=== PATIENT | male | born 1985 | race Caucasian/White ===

== ENCOUNTER 2018-07-19 18:24 | Inpatient (IN) | payer OTHER ==
--- NOTE | 2018-07-19 20:16 | HP ---
CIWA Score - CIWA Score Nausea/Vomitin-Int. Nausea w/Dry Heave Muscle Tremors: 2 Anxiety: 3 Agitation: 2 Paroxysmal Sweats: 2 Orientation: 0-Oriented Tacttile Disturbances: 0-None Auditory Disturbances: 0-None Visual Disturbances: 2-Mild Sensitivity Headache: 0-None Present CIWA-Ar Total Score: 15 Admission ROS BHS - HPI Chief Complaint: " I have a lot of stress right now, I don't feel well" alcohol withdrawal sx Allergies/Adverse Reactions: Allergies Allergy/AdvReac Type Severity Reaction Status Date / Time No Known Allergies Allergy Verified 07/19/18 20:25 History of Present Illness: 33 yo male with hx of nicotine and alcohol dependence. Last detox three months ago at [facility] left AMA after 24 hours, and relapse. Reports was seen at [facility] three days ago for anxiety d/t to right corneal and reports was given valium and sent home. utox positive for : BAR, BZO, THC. Denies any legal troubles at this time. Denies suicidal / homicidal ideation. Denies hx of seizures or blackouts. PMHX: HDL. Denies any psychiatric diagnosis. Longest period of sobriety seven months. Exam Limitations: No Limitations - Ebola screening Have you traveled outside of the country in the last 21 days: No (N) Have you had contact with anyone from an Ebola affected area: No Do you have a fever: No - Review of Systems Constitutional: Loss of Appetite, Changes in sleep, Other (fatigue) EENT: reports: See HPI Respiratory: reports: Other (SOB in AM , no SOB at this time) Cardiac: reports: No Symptoms Reported GI: reports: Nausea, Poor Appetite, Poor Fluid Intake, Vomiting : reports: No Symptoms Reported Musculoskeletal: reports: Back Pain, Joint Pain Integumentary: reports: No Symptoms Reported Neuro: reports: No Symptoms reported Endocrine: reports: Increased Thirst Hematology: reports: No Symptoms Reported Psychiatric: reports: Orientated x3, Anxious, Depressed Other Systems: Reviewed and Negative Patient History - Patient Medical History Hx Anemia: No Hx Asthma: No Hx Chronic Obstructive Pulmonary Disease (COPD): No Hx Cancer: No Hx Cardiac Disorders: No Hx Congestive Heart Failure: No Hx Hypertension: No Hx Hypercholesterolemia: Yes (no meds ) Hx Pacemaker: No HX Cerebrovascular Accident: No Hx Seizures: No Hx Dementia: No Hx Diabetes: No Hx Gastrointestinal Disorders: No Hx Liver Disease: No Hx Genitourinary Disorders: No Hx Sexually Transmitted Disorders: No Hx Renal Disease (ESRD): No Hx Thyroid Disease: No Hx Human Immunodeficiency Virus (HIV): No ( last tested three weeks [facility] reasults ) Hx Hepatitis C: No Hx Depression: Yes Hx Suicide Attempt: No Hx Bipolar Disorder: No Hx Schizophrenia: No - Patient Surgical History Past Surgical History: No - PPD History Previous Implant?: No Documented Results: Negative w/o proof PPD to be Administered?: Yes - Smoking Cessation Smoking history: Current every day smoker Have you smoked in the past 12 months: Yes Aproximately how many cigarettes per day: 30 Hx Chewing Tobacco Use: No Initiated information on smoking cessation: Yes 'Breaking Loose' booklet given: 07/19/18 - Substance & Tx. History Hx Alcohol Use: Yes Hx Substance Use: Yes Substance Use Type: Alcohol, Marijuana Hx Substance Use Treatment: Yes (Last detox three months ago [facility] left AMA after 24 hours.) - Substances Abused Alcohol Route: Oral Frequency: Daily Amount used: 1 litter of vodka Age of first use: 16 Date of Last Use: 07/19/18 Marijuana/Hashish Route: Smoking Frequency: Daily Amount used: 2 grams Age of first use: 16 Date of Last Use: 07/19/18 Family Disease History - Family Disease History Family History: Denies Admission Physical Exam [facility] - Physical General Appearance: Yes: Disheveled, Moderate Distress, Sweating, Anxious HEENTM: Yes: EOMI, Hearing grossly Normal, Normal ENT Inspection, Normocephalic , Normal Voice, ARNOLDO, Pharynx Normal, Tm's normal, Other (cheilithis) Respiratory: Yes: Chest Non-Tender, Lungs Clear, Normal Breath Sounds, No Respiratory Distress, No Accessory Muscle Use Neck: Yes: Within Normal Limits Breast: Yes: Breast Exam Deferred Cardiology: Yes: Regular Rhythm, Regular Rate Abdominal: Yes: Normal Bowel Sounds, Non Tender, Flat Genitourinary: Yes: Within Normal Limits Back: Yes: Normal Inspection Musculoskeletal: Yes: full range of Motion, Gait Steady, Pelvis Stable Extremities: Yes: Normal Capillary Refill, Normal Inspection, Normal Range of Motion, Non-Tender 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
[2018-07-19 20:25] VITALS: BMI 28.8
[2018-07-19] MEDS ORDERED: MENTHOL/PHENOL 1 EACH UD MM PRN (20:25)
[2018-07-19] MEDS ORDERED: MAGNESIUM CITRATE 300 ML BOTTLE PO PRN (20:25)
[2018-07-19] MEDS ORDERED: ACETAMINOPHEN 325 MG TABLET (FP) PO PRN (20:25)
[2018-07-19] MEDS ORDERED: P-EPHED 60MG/TRIPROLIDI 2.5MG TABLET PO PRN (20:25)
[2018-07-19] MEDS ORDERED: MAGNESIUM HYDROX 2400MG/30ML ORAL SUSPENSION 30 ML CUP PO PRN (20:25)
[2018-07-19] MEDS ORDERED: guaiFENesin/D-METHORPHAN HB 10 ML UNIT-DOSE CUPS PO PRN (20:25)
[2018-07-19] MEDS ORDERED: LOPERAMIDE HCL 2 MG CAPSULE PO PRN (20:25)
[2018-07-19] MEDS ORDERED: chlordiazePOXIDE HCL 25 MG CAPSULE PO ONE (20:25)
[2018-07-19] MEDS ORDERED: MAG HYDROX/AL HYDROX/SIMETH 30 ML UNIT-DOSE CUP PO PRN (20:25)
[2018-07-19] MEDS ORDERED: MELATONIN 5 MG TABLETS PO PRN (22:00)
[2018-07-19] MEDS: chlordiazePOXIDE HCL 25 MG CAPSULE PO SCH (22:56)
[2018-07-19] MEDS: THIAMINE HCL 100 MG TABLET (FP) PO SCH (22:57)
[2018-07-19] MEDS: NICOTINE POLACRILEX 2 MG GUM BUC PRN (23:48)
[2018-07-20] MEDS: chlordiazePOXIDE HCL 25 MG CAPSULE PO SCH ×4 (06:28→22:12)
[2018-07-20] MEDS: NICOTINE POLACRILEX 2 MG GUM BUC PRN ×5 (06:29→17:26)
[2018-07-20 10:00] LABS: HEMATOCRIT 43.4 % (35.4-49); HEMOGLOBIN 14.5 GM/dL (11.7-16.9); MCH 28.7 pg (25.7-33.7); MCHC 33.4 g/dl (32.0-35.9); MEAN CELL VOLUME 85.8 fl (80-96); MEAN PLT VOLUME 8.5 fl (7.5-11.1); PLATELET COUNT 207 K/MM3 (134-434); RBC 5.06 M/mm3 (4.00-5.60); RDW 13.8 % (11.9-15.9); WHITE BLOOD COUNT 11.1 K/mm3 (4.0-10.0)
--- NOTE | 2018-07-20 10:13 | EKG ---
Test Reason : Blood Pressure : / mmHG Vent. Rate : 062 BPM Atrial Rate : 062 BPM P-R Int : 144 ms QRS Dur : 086 ms QT Int : 404 ms P-R-T Axes : 008 057 045 degrees QTc Int : 410 ms POOR DATA QUALITY, INTERPRETATION MAY BE ADVERSELY AFFECTED NORMAL SINUS RHYTHM WITH SINUS ARRHYTHMIA ANTERIOR INFARCT , AGE UNDETERMINED ABNORMAL ECG NO PREVIOUS ECGS AVAILABLE Confirmed by MAURIZIO BRICE MD ([id number]) on 07/20/2018 10:13:02 AM Referred By: Confirmed By:MAURIZIO BRICE MD
[2018-07-20] MEDS: PRENATAL VITAMINS W/ FOLIC ACID TABLET (FP) PO SCH (10:41)
[2018-07-20] MEDS: NICOTINE 21 MG/24 HOURS TOPICAL PATCH TD SCH (10:41)
[2018-07-20 10:45] LABS: ALBUMIN 3.8 g/dl (3.4-5.0); ALK PHOS 89 U/L (45-117); ANION GAP 6 MMOL/L (8-16); BILIRUBIN,TOTAL 0.4 mg/dL (0.2-1); BLOOD UREA NITROGEN 12 mg/dL (7-18); CALCIUM 9.2 mg/dL (8.5-10.1); CHLORIDE 106 mmol/L (98-107); CO2 27 mmol/L (21-32); CREATININE 0.7 mg/dL (0.55-1.3); GLUCOSE,RANDOM 82 mg/dL (74-106); POTASSIUM 4.2 mmol/L (3.5-5.1); SGOT/AST 15 U/L (15-37); SGPT/ALT 22 U/L (13-61); SODIUM 139 mmol/L (136-145)
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
--- NOTE | 2018-07-20 11:45 | PN ---
S CIWA - CIWA Score Nausea/Vomitin Muscle Tremors: 4-Moderate,w/Arms Extend Anxiety: 4-Mod. Anxious/Guarded Agitation: 4-Moderately Restless Paroxysmal Sweats: 3 Orientation: 0-Oriented Tacttile Disturbances: 0-None Auditory Disturbances: 0-None Visual Disturbances: 0-None Headache: 0-None Present CIWA-Ar Total Score: 18 BHS Progress Note (SOAP) Subjective: Headache, weakness, body ache, agitation Objective: 07/20/18 11:42 Last Vital Signs Temp Pulse Resp BP Pulse Ox 97.0 F L 74 18 126/62 07/20/18 10:25 07/20/18 10:25 07/20/18 10:25 07/20/18 10:25 Laboratory Tests 07/20/18 07/20/18 07:00 07:00 WBC 11.1 H RBC 5.06 Hgb 14.5 Hct 43.4 MCV 85.8 MCH 28.7 MCHC 33.4 RDW 13.8 Plt Count 207 MPV 8.5 Sodium 139 Potassium 4.2 Chloride 106 Carbon Dioxide 27 Anion Gap 6 L BUN 12 Creatinine 0.7 Creat Clearance w eGFR > 60 Random Glucose 82 Calcium 9.2 Total Bilirubin 0.4 AST 15 ALT 22 Alkaline Phosphatase 89 Total Protein 7.0 Albumin 3.8 Labs reviewed: wbc 11.1 Assessment: 07/20/18 11:43 Withdrawal symptoms Noted with leukocytosis Plan: Withdrawal sxs Leukocytosis: asymptomatic, repeat CBC
[2018-07-20] MEDS: IBUPROFEN 400 MG TABLET (FP) PO PRN (15:01)
[2018-07-20] MEDS: THIAMINE HCL 100 MG TABLET (FP) PO SCH (22:12)
[2018-07-20] MEDS: QUEtiapine FUMARATE 25 MG TABLET (FP) PO SCH (22:12)
[2018-07-21] MEDS: chlordiazePOXIDE HCL 25 MG CAPSULE PO SCH ×3 (06:33→17:26)
[2018-07-21] MEDS: chlordiazePOXIDE HCL 25 MG CAPSULE PO PRN (07:44)
[2018-07-21] MEDS: NICOTINE POLACRILEX 2 MG GUM BUC PRN ×5 (07:47→22:05)
[2018-07-21] MEDS: hydrOXYzine PAMOATE 50 MG CAPSULE (FP) PO PRN (07:52)
[2018-07-21 10:51] LABS: BASO % 0.3 % (0-2.0); EOS % 1.4 % (0-4.5); HEMATOCRIT 45.8 % (35.4-49); HEMOGLOBIN 15.5 GM/dL (11.7-16.9); MCH 28.9 pg (25.7-33.7); MCHC 33.8 g/dl (32.0-35.9); MEAN CELL VOLUME 85.3 fl (80-96); MEAN PLT VOLUME 8.1 fl (7.5-11.1); MONO % 9.9 % (3.8-10.2); NEUT % 45.4 % (42.8-82.8); PLATELET COUNT 195 K/MM3 (134-434); RBC 5.37 M/mm3 (4.00-5.60); RDW 13.6 % (11.9-15.9); WHITE BLOOD COUNT 8.5 K/mm3 (4.0-10.0)
[2018-07-21] MEDS: NICOTINE 21 MG/24 HOURS TOPICAL PATCH TD SCH (10:51)
[2018-07-21] MEDS: PRENATAL VITAMINS W/ FOLIC ACID TABLET (FP) PO SCH (10:51)
--- NOTE | 2018-07-21 14:56 | PN ---
S CIWA - CIWA Score Nausea/Vomitin Muscle Tremors: 2 Anxiety: 2 Agitation: 2 Paroxysmal Sweats: 1-Minimal Palms Moist Orientation: 0-Oriented Tacttile Disturbances: 1-Very Mild Itch/Numbness Auditory Disturbances: 1-Very Mild Visual Disturbances: 1-Very Mild Sensitivity Headache: 2-Mild CIWA-Ar Total Score: 14 S Progress Note (SOAP) Subjective: alert,irritable,anxious,interrupted sleep,tremor Objective: 07/21/18 14:54 Vital Signs Temperature 97.3 F L 07/21/18 11:11 Pulse Rate 83 07/21/18 11:11 Respiratory Rate 20 07/21/18 11:11 Blood Pressure 135/90 07/21/18 11:11 O2 Sat by Pulse Oximetry (%) Laboratory Last Values WBC 8.5 K/mm3 (4.0-10.0) 07/21/18 08:00 RBC 5.37 M/mm3 (4.00-5.60) 07/21/18 08:00 Hgb 15.5 GM/dL (11.7-16.9) 07/21/18 08:00 Hct 45.8 % (35.4-49) 07/21/18 08:00 MCV 85.3 fl (80-96) 07/21/18 08:00 MCH 28.9 pg (25.7-33.7) 07/21/18 08:00 MCHC 33.8 g/dl (32.0-35.9) 07/21/18 08:00 RDW 13.6 % (11.9-15.9) 07/21/18 08:00 Plt Count 195 K/MM3 (134-434) 07/21/18 08:00 MPV 8.1 fl (7.5-11.1) 07/21/18 08:00 Absolute Neuts (auto) 3.9 K/mm3 (1.5-8.0) 07/21/18 08:00 Neutrophils % 45.4 % (42.8-82.8) 07/21/18 08:00 Lymphocytes % 43.0 % (8-40) H 07/21/18 08:00 Monocytes % 9.9 % (3.8-10.2) 07/21/18 08:00 Eosinophils % 1.4 % (0-4.5) 07/21/18 08:00 Basophils % 0.3 % (0-2.0) 07/21/18 08:00 Nucleated RBC % 0 % (0-0) 07/21/18 08:00 Sodium 139 mmol/L (136-145) 07/20/18 07:00 Potassium 4.2 mmol/L (3.5-5.1) 07/20/18 07:00 Chloride 106 mmol/L (98-107) 07/20/18 07:00 Carbon Dioxide 27 mmol/L (21-32) 07/20/18 07:00 Anion Gap 6 MMOL/L (8-16) L 07/20/18 07:00 BUN 12 mg/dL (7-18) 07/20/18 07:00 Creatinine 0.7 mg/dL (0.55-1.3) 07/20/18 07:00 Creat Clearance w eGFR > 60 (>60) 07/20/18 07:00 Random Glucose 82 mg/dL (74-106) 07/20/18 07:00 Calcium 9.2 mg/dL (8.5-10.1) 07/20/18 07:00 Total Bilirubin 0.4 mg/dL (0.2-1) 07/20/18 07:00 AST 15 U/L (15-37) 07/20/18 07:00 ALT 22 U/L (13-61) 07/20/18 07:00 Alkaline Phosphatase 89 U/L (45-117) 07/20/18 07:00 Total Protein 7.0 g/dl (6.4-8.2) 07/20/18 07:00 Albumin 3.8 g/dl (3.4-5.0) 07/20/18 07:00 RPR Titer Nonreactive (NONREACTIVE) 07/20/18 07:00 Assessment: 07/21/18 14:55 withdrawal symptom Plan: continue detox
[2018-07-21] MEDS: chlordiazePOXIDE 5 MG CAPSULE PO SCH (22:01)
[2018-07-21] MEDS: THIAMINE HCL 100 MG TABLET (FP) PO SCH (22:01)
[2018-07-21] MEDS: QUEtiapine FUMARATE 25 MG TABLET (FP) PO SCH (22:01)
[2018-07-21] MEDS: IBUPROFEN 400 MG TABLET (FP) PO PRN (22:02)
[2018-07-22] MEDS: chlordiazePOXIDE 5 MG CAPSULE PO SCH ×3 (06:47→17:05)
[2018-07-22] MEDS: chlordiazePOXIDE HCL 25 MG CAPSULE PO PRN (06:54)
[2018-07-22] MEDS: NICOTINE POLACRILEX 2 MG GUM BUC PRN ×5 (06:55→22:37)
[2018-07-22] MEDS ORDERED: ONDANSETRON *ODT* 4 MG TABLET SL PRN (09:35)
[2018-07-22] MEDS: PRENATAL VITAMINS W/ FOLIC ACID TABLET (FP) PO SCH (10:32)
[2018-07-22] MEDS: NICOTINE 21 MG/24 HOURS TOPICAL PATCH TD SCH (10:33)
--- NOTE | 2018-07-22 15:16 | PN ---
S Progress Note (SOAP) Subjective: Back ache, nausea, headache Objective: 07/22/18 15:15 Last Vital Signs Temp Pulse Resp BP Pulse Ox 97.4 F L 100 H 18 126/90 07/22/18 14:08 07/22/18 14:08 07/22/18 14:08 07/22/18 14:08 Laboratory Tests 07/20/18 07/20/18 07/20/18 07:00 07:00 07:00 WBC 11.1 H RBC 5.06 Hgb 14.5 Hct 43.4 MCV 85.8 MCH 28.7 MCHC 33.4 RDW 13.8 Plt Count 207 MPV 8.5 Absolute Neuts (auto) Neutrophils % Lymphocytes % Monocytes % Eosinophils % Basophils % Nucleated RBC % Sodium 139 Potassium 4.2 Chloride 106 Carbon Dioxide 27 Anion Gap 6 L BUN 12 Creatinine 0.7 Creat Clearance w eGFR > 60 Random Glucose 82 Calcium 9.2 Total Bilirubin 0.4 AST 15 ALT 22 Alkaline Phosphatase 89 Total Protein 7.0 Albumin 3.8 RPR Titer Nonreactive 07/21/18 08:00 WBC 8.5 RBC 5.37 Hgb 15.5 Hct 45.8 MCV 85.3 MCH 28.9 MCHC 33.8 RDW 13.6 Plt Count 195 MPV 8.1 Absolute Neuts (auto) 3.9 Neutrophils % 45.4 Lymphocytes % 43.0 H Monocytes % 9.9 Eosinophils % 1.4 Basophils % 0.3 Nucleated RBC % 0 Sodium Potassium Chloride Carbon Dioxide Anion Gap BUN Creatinine Creat Clearance w eGFR Random Glucose Calcium Total Bilirubin AST ALT Alkaline Phosphatase Total Protein Albumin RPR Titer Labs reviewed Assessment: 07/22/18 15:16 Withdrawal sxs Plan: Continue detox Encouraged PO water intake
[2018-07-22] MEDS: hydrOXYzine PAMOATE 50 MG CAPSULE (FP) PO PRN (17:06)
[2018-07-22] MEDS: QUEtiapine FUMARATE 25 MG TABLET (FP) PO SCH (22:36)
[2018-07-22] MEDS: THIAMINE HCL 100 MG TABLET (FP) PO SCH (22:36)
[2018-07-22] MEDS: chlordiazePOXIDE HCL 10 MG CAPSULE PO SCH (22:36)
[2018-07-23 06:07] VITALS: BP 119/77; PULSE 76; TEMP 96.6
[2018-07-23] MEDS: chlordiazePOXIDE HCL 10 MG CAPSULE PO SCH (06:30)
--- NOTE | 2018-07-23 09:06 | DS ---
[facility] Detox Discharge Summary Admission Date: 07/19/18 Discharge Date: 07/16/18 - History Present History: Alcohol Dependence, Cannabis Dependence Additional Comments: Patient medically stable. Patient to follow up with referral to [facility] and [facility]. Patient to follow up with primary care provider in 1 - 2 weeks. Pertinent Past History: Vital Signs Temperature 96.6 F L 07/23/18 06:06 Pulse Rate 76 07/23/18 06:06 Respiratory Rate 18 07/23/18 06:30 Blood Pressure 119/77 07/23/18 06:06 O2 Sat by Pulse Oximetry (%) Laboratory Last Values WBC 8.5 K/mm3 (4.0-10.0) 07/21/18 08:00 RBC 5.37 M/mm3 (4.00-5.60) 07/21/18 08:00 Hgb 15.5 GM/dL (11.7-16.9) 07/21/18 08:00 Hct 45.8 % (35.4-49) 07/21/18 08:00 MCV 85.3 fl (80-96) 07/21/18 08:00 MCH 28.9 pg (25.7-33.7) 07/21/18 08:00 MCHC 33.8 g/dl (32.0-35.9) 07/21/18 08:00 RDW 13.6 % (11.9-15.9) 07/21/18 08:00 Plt Count 195 K/MM3 (134-434) 07/21/18 08:00 MPV 8.1 fl (7.5-11.1) 07/21/18 08:00 Absolute Neuts (auto) 3.9 K/mm3 (1.5-8.0) 07/21/18 08:00 Neutrophils % 45.4 % (42.8-82.8) 07/21/18 08:00 Lymphocytes % 43.0 % (8-40) H 07/21/18 08:00 Monocytes % 9.9 % (3.8-10.2) 07/21/18 08:00 Eosinophils % 1.4 % (0-4.5) 07/21/18 08:00 Basophils % 0.3 % (0-2.0) 07/21/18 08:00 Nucleated RBC % 0 % (0-0) 07/21/18 08:00 Sodium 139 mmol/L (136-145) 07/20/18 07:00 Potassium 4.2 mmol/L (3.5-5.1) 07/20/18 07:00 Chloride 106 mmol/L (98-107) 07/20/18 07:00 Carbon Dioxide 27 mmol/L (21-32) 07/20/18 07:00 Anion Gap 6 MMOL/L (8-16) L 07/20/18 07:00 BUN 12 mg/dL (7-18) 07/20/18 07:00 Creatinine 0.7 mg/dL (0.55-1.3) 07/20/18 07:00 Creat Clearance w eGFR > 60 (>60) 07/20/18 07:00 Random Glucose 82 mg/dL (74-106) 07/20/18 07:00 Calcium 9.2 mg/dL (8.5-10.1) 07/20/18 07:00 Total Bilirubin 0.4 mg/dL (0.2-1) 07/20/18 07:00 AST 15 U/L (15-37) 07/20/18 07:00 ALT 22 U/L (13-61) 07/20/18 07:00 Alkaline Phosphatase 89 U/L (45-117) 07/20/18 07:00 Total Protein 7.0 g/dl (6.4-8.2) 07/20/18 07:00 Albumin 3.8 g/dl (3.4-5.0) 07/20/18 07:00 RPR Titer Nonreactive (NONREACTIVE) 07/20/18 07:00 - Physical Exam Results Vital Signs: Vital Signs Temperature 96.6 F L 07/23/18 06:06 Pulse Rate 76 07/23/18 06:06 Respiratory Rate 18 07/23/18 06:30 Blood Pressure 119/77 07/23/18 06:06 O2 Sat by Pulse Oximetry (%) - Treatment Hospital Course: Detox Protocol Followed, Detoxed Safely, Responded well, Discharged Condition Good, Rehab Referral Accepted Patient has Accepted a Rehab Referral to: [facility] - Diagnosis (1) Alcohol dependence with withdrawal Status: Acute Qualifiers: Complication of substance-induced condition: uncomplicated Qualified Code(s ): F10.230 - Alcohol dependence with withdrawal, uncomplicated (2) Nicotine dependence Status: Acute Qualifiers: Nicotine product type: cigarettes (3) Anxious mood Status: Acute (4) Marijuana dependence Status: Acute - AMA Did Patient Leave Against Medical Advice: No
[2018-07-23] MEDS: NICOTINE 21 MG/24 HOURS TOPICAL PATCH TD SCH (09:12)
[2018-07-23] MEDS: PRENATAL VITAMINS W/ FOLIC ACID TABLET (FP) PO SCH (09:12)
== END 2018-07-23 09:05 | disposition home or self-care (01) | DRG 775 ==
LOC: YASAS 18:24 → Y3N 19:21
PROC: HZ2ZZZZ Detoxification Services for Substance Abuse Treatment (ICD-10-PCS; principal; 2018-07-19)
DX: F10.230 Alcohol dependence with withdrawal, uncomplicated (principal); F12.20 Cannabis dependence, uncomplicated; F17.210 Nicotine dependence, cigarettes, uncomplicated; F39 Unspecified mood [affective] disorder; F31.9 Bipolar disorder, unspecified; F19.24 Other psychoactive substance dependence with psychoactive substance-induced mood disorder; G47.00 Insomnia, unspecified; Z91.19 Patient's noncompliance with other medical treatment and regimen
CPT/HCPCS: 36415; 80053; 85025; 85027; 86593; 93005; 93010

== ENCOUNTER 2018-09-06 15:02 | Inpatient (IN) | payer OTHER ==
[2018-09-06 16:48] VITALS: BMI 27.3
--- NOTE | 2018-09-06 19:28 | HP ---
CIWA Score Nausea/Vomitin-Mild Nausea/No Vomiting Muscle Tremors: 4-Moderate,w/Arms Extend Anxiety: 4-Mod. Anxious/Guarded Agitation: 3 Paroxysmal Sweats: 3 (Facial moisture) Orientation: 0-Oriented Tacttile Disturbances: 0-None Auditory Disturbances: 0-None Visual Disturbances: 2-Mild Sensitivity (Sensitivity to light. Denies hallucinations) Headache: 3-Moderate (Worse because of withdrawal) CIWA-Ar Total Score: 20 - Admission Criteria OAS Guidelines: Admission for Medically Managed Detox: Requires at least one of the followin. CIWA greater than 12 2. Seizures within the past 24 hours 3. Delirium tremens within the past 24 hours 4. Hallucinations within the past 24 hours 5. Acute intervention needed for co occurring medical disorder 6. Acute intervention needed for co occurring psychiatric disorder 7. Severe withdrawal that cannot be handled at a lower level of care (continued vomiting, continued diarrhea, abnormal vital signs) requiring intravenous medication and/or fluids 8. Patient presents the following: CIWA greater than 12 Admission Criteria Met: Admission criteria met Admission ROS [facility] Chief Complaint: Here for alcohol withdrawal. Allergies/Adverse Reactions: Allergies Allergy/AdvReac Type Severity Reaction Status Date / Time No Known Allergies Allergy Verified 09/06/18 17:07 History of Present Illness: Alcohol use since age 16. Nicotine use since age 16. Marijuana use since age 16. Denies hx seizures, blackouts. States had eye problems but resolved. States vision is fine. Denies significant PMH/PSH Search Terms: Phong Tony, 1985 Search Date: 09/06/2018 07:43:55 PM The Drug Utilization Report below displays all of the controlled substance prescriptions, if any, that your patient has filled in the last twelve months. The information displayed on this report is compiled from pharmacy submissions to the Department, and accurately reflects the information as submitted by the pharmacies. This report was requested by: Litzy Boudreaux | Reference #: [id number] Others' Prescriptions Patient Name: Phong Tony Date: 1985 Address: [address] [place] [address] Sex: Male Rx Written Rx Dispensed Drug Quantity Days Supply Prescriber Name 05/14/2018 05/14/2018 chlordiazepoxide 10 mg capsule 45 3 LaksDouglas MD 04/02/2018 04/02/2018 chlordiazepoxide 10 mg capsule 30 2 Douglas Hope MD 03/30/2018 03/30/2018 chlordiazepoxide 10 mg capsule 36 4 LaksDouglas MD Exam Limitations: No Limitations - Ebola screening Have you traveled outside of the country in the last 21 days: No Have you had contact with anyone from an Ebola affected area: No Have you been sick,other than usual withdrawal symptoms: No - Review of Systems Constitutional: Diaphoresis EENT: reports: No Symptoms Reported Respiratory: reports: No Symptoms reported Cardiac: reports: No Symptoms Reported GI: reports: Nausea : reports: No Symptoms Reported Musculoskeletal: reports: No Symptoms Reported Integumentary: reports: No Symptoms Reported Neuro: reports: Headache (r/t withdrawal) Endocrine: reports: No Symptoms Reported Hematology: reports: No Symptoms Reported Psychiatric: reports: Orientated x3, Agitated, Anxious (Denies thoughts of harming self or others) Patient History - Patient Medical History Hx Anemia: No Hx Asthma: No Hx Chronic Obstructive Pulmonary Disease (COPD): No Hx Cancer: No Hx Cardiac Disorders: No Hx Congestive Heart Failure: No Hx Hypertension: No Hx Hypercholesterolemia: Yes (no meds ) Hx Pacemaker: No HX Cerebrovascular Accident: No Hx Seizures: No Hx Dementia: No Hx Diabetes: No Hx Gastrointestinal Disorders: No Hx Liver Disease: No Hx Genitourinary Disorders: No Hx Sexually Transmitted Disorders: No Hx Renal Disease (ESRD): No Hx Thyroid Disease: No Hx Human Immunodeficiency Virus (HIV): No ( last tested three weeks NEG reasults ) Hx Hepatitis C: No Hx Depression: No Hx Suicide Attempt: No Hx Bipolar Disorder: No Hx Schizophrenia: No - Patient Surgical History Past Surgical History: No Hx Neurologic Surgery: No Hx Cataract Extraction: No Hx Cardiac Surgery: No Hx Lung Surgery: No Hx Breast Surgery: No Hx Breast Biopsy: No Hx Abdominal Surgery: No Hx Appendectomy: No Hx Cholecystectomy: No Hx Genitourinary Surgery: No Hx Section: No Hx Orthopedic Surgery: No Anesthesia Reaction: No - PPD History Previous Implant?: Yes Documented Results: Negative w/proof Implanted On Prior R Admission?: Yes Date: 07/21/18 Results: 0 mm PPD to be Administered?: No - Smoking Cessation Smoking history: Current every day smoker Have you smoked in the past 12 months: Yes Aproximately how many cigarettes per day: 30 Hx Chewing Tobacco Use: No Initiated information on smoking cessation: Yes 'Breaking Loose' booklet given: 09/06/18 - Substance & Tx. History Hx Alcohol Use: Yes Hx Substance Use: Yes Substance Use Type: Alcohol, Marijuana Hx Substance Use Treatment: Yes (detox, ) - Substances Abused Alcohol-vodka Route: Oral Frequency: Daily Amount used: 2 pts. Age of first use: 16 Date of Last Use: 09/06/18 Marijuana Route: Smoking Frequency: Daily Amount used: $20 Age of first use: 16 Date of Last Use: 09/06/18 Admission Physical Exam BHS - Vital Signs Vital Signs: Vital Signs - 24 hr 09/06/18 16:47 Temperature 96.9 F L Pulse Rate 100 H Respiratory 18 Rate Blood Pressure 117/67 - Physical General Appearance: Yes: Moderate Distress, Tremorous, Irritable (Irritable and truculent/defiant. Resistant to answering questiosns. States "I can do it better " "Medicaid is trhe problem w/ this place."), Sweating (Facial Moisture), Anxious HEENTM: Yes: EOMI, Hearing grossly Normal, Normal Voice, ARNOLDO Respiratory: Yes: Lungs Clear, Normal Breath Sounds, No Respiratory Distress Neck: Yes: No masses,lesions,Nodules, Supple Breast: Yes: Breast Exam Deferred Cardiology: Yes: Regular Rhythm, S1, S2, Tachycardia Abdominal: Yes: Non Tender, Soft, Increased Bowel Sounds Genitourinary: Yes: Within Normal Limits Back: Yes: Normal Inspection Musculoskeletal: Yes: full range of Motion, Gait Steady Extremities: Yes: Normal Capillary Refill, Normal Inspection, Normal Range of Motion, Non-Tender, Tremors (of hands when arms extended) Neurological: Yes: metal moulder II-XII NML intact, Fully Oriented, Alert, Motor Strength 5/5, Normal Mood/Affect Integumentary: Yes: Normal Color, Dry (Good turgor), Warm Lymphatic: Yes: Within Normal Limits - Diagnostic (1) Alcohol dependence with withdrawal Current Visit: Yes Status: Acute Qualifiers: Complication of substance-induced condition: uncomplicated Qualified Code(s ): F10.230 - Alcohol dependence with withdrawal, uncomplicated (2) Marijuana dependence Current Visit: Yes Status: Chronic (3) Nicotine dependence Current Visit: Yes Status: Chronic Qualifiers: Nicotine product type: cigarettes Substance use status: uncomplicated Qualified Code(s): F17.210 - Nicotine dependence, cigarettes, uncomplicated Cleared for Admission [facility] - Detox or Rehab [facility] Level of Care: Medically Managed Detox Regimen/Protocol: Librium S Breath Alcohol Content Breath Alcohol Content: 0 Urine Drug Screen - Results Drug Screen Negative: No Urine Drug Screen Results: THC-Marijuana
[2018-09-06] MEDS ORDERED: MAGNESIUM HYDROX 2400MG/30ML ORAL SUSPENSION 30 ML CUP PO PRN (19:45)
[2018-09-06] MEDS ORDERED: LOPERAMIDE HCL 2 MG CAPSULE PO PRN (19:45)
[2018-09-06] MEDS ORDERED: IBUPROFEN 400 MG TABLET (FP) PO PRN (19:45)
[2018-09-06] MEDS ORDERED: chlordiazePOXIDE HCL 25 MG CAPSULE PO ONE (19:45)
[2018-09-06] MEDS ORDERED: MAGNESIUM CITRATE 300 ML BOTTLE PO PRN (19:45)
[2018-09-06] MEDS ORDERED: MAG HYDROX/AL HYDROX/SIMETH 30 ML UNIT-DOSE CUP PO PRN (19:45)
[2018-09-06] MEDS ORDERED: MENTHOL/PHENOL 1 EACH UD MM PRN (19:45)
[2018-09-06] MEDS ORDERED: ACETAMINOPHEN 325 MG TABLET (FP) PO PRN (19:45)
[2018-09-06] MEDS: NICOTINE POLACRILEX 4 MG GUM BUC PRN (20:14)
[2018-09-06] MEDS ORDERED: MELATONIN 5 MG TABLETS PO PRN (22:00)
[2018-09-06] MEDS ORDERED: THIAMINE HCL 100 MG TABLET (FP) PO SCH (22:00)
[2018-09-06] MEDS: chlordiazePOXIDE HCL 25 MG CAPSULE PO SCH (22:55)
[2018-09-07] MEDS: chlordiazePOXIDE HCL 25 MG CAPSULE PO SCH ×2 (06:38→10:29)
[2018-09-07] MEDS: chlordiazePOXIDE HCL 25 MG CAPSULE PO PRN ×2 (07:34→12:28)
[2018-09-07] MEDS: NICOTINE POLACRILEX 4 MG GUM BUC PRN (09:26)
[2018-09-07 09:56] VITALS: BP 138/90; PULSE 112; TEMP 98
[2018-09-07] MEDS ORDERED: PRENATAL VITAMINS W/ FOLIC ACID TABLET (FP) PO SCH (10:00)
[2018-09-07] MEDS ORDERED: NICOTINE 21 MG/24 HOURS TOPICAL PATCH TD SCH (10:00)
[2018-09-07] MEDS ORDERED: hydrOXYzine PAMOATE 50 MG CAPSULE (FP) PO PRN (10:10)
[2018-09-07 10:29] LABS: HEMATOCRIT 37.5 % (35.4-49); HEMOGLOBIN 13.2 GM/dL (11.7-16.9); MCHC 35.3 g/dl (32.0-35.9); MEAN CELL VOLUME 84.9 fl (80-96); MEAN PLT VOLUME 7.8 fl (7.5-11.1); PLATELET COUNT 251 K/MM3 (134-434); RBC 4.42 M/mm3 (4.00-5.60); RDW 13.9 % (11.9-15.9); WHITE BLOOD COUNT 9.5 K/mm3 (4.0-10.0)
--- NOTE | 2018-09-07 10:42 | CONSULT ---
[facility] Psychiatric Consult - Data Date of interview: 09/07/18 Admission source: [facility] Identifying data: Patient is a 33 year old single male, without children, unemployed, homeless, and is not receiving financial assistance. This is one of multiple admissions to detox at [facility]. Patient admitted to for alcohol and marijuana dependence. Substance Abuse History: Smoking Cessation. Smoking history: Current every day smoker. Have you smoked in the past 12 months: Yes. Aproximately how many cigarettes per day: 30. Hx Chewing Tobacco Use: No. Initiated information on smoking cessation: Yes. 'Breaking Loose' booklet given: 09/06/18. - Substance & Tx. History. Hx Alcohol Use: Yes. Hx Substance Use: Yes. Substance Use Type : Alcohol, Marijuana. Hx Substance Use Treatment: Yes (detox, ). - Substances Abused. Alcohol-vodka. Route: Oral. Frequency: Daily. Amount used: 2 pts. Age of first use: 16. Date of Last Use: 09/06/18. Marijuana. Route: Smoking. Frequency: Daily. Amount used: $20. Age of first use: 16. Date of Last Use: 09/06/18 Medical History: hypercholesterolemia Psychiatric History: Patient is a unreliable historian. He denies h/o psychiatric treatment. Patient presents as guarded, odd, and internally preoccupied. Patient observed pacing around unit and is argumentive with staff and peers although was able to be redirected. Patient agreeable to accepting seroquel 50mg qhs and vistaril 50mg as needed. As per Dr. Bell note on , patient reported a history of ADHD and Bipolar disorder. He reported history of treatment with with antipsychotics and mood stabilizers. Patient denies h/o suicide attempt. Patient denies thoughts or urges to hurt self or others. Physical/Sexual Abuse/Trauma History: denies. Mental Status Exam - Mental Status Exam Alert and Oriented to: Time, Place, Person Cognitive Function: Good Patient Appearance: Well Groomed Mood: Euthymic, Irritable Affect: Labile Patient Behavior: Cooperative (cooperative with screenplay writer but was uncooperative with PREMIX OPERATOR CONCENTRATE.) Speech Pattern: Clear Voice Loudness: Normal Thought Process: Flight of Ideas (mild flight of ideas) Thought Disorder: Present (Internally preoccupied) Hallucinations: Denies Suicidal Ideation: Denies Homicidal Ideation: Denies Insight/Judgement: Poor Sleep: Fair Appetite: Fair Muscle strength/Tone: Normal Gait/Station: Normal Psychiatric Findings - Problem List ([place] 1, 2,3) (1) Alcohol dependence with withdrawal Status: Acute Qualifiers: Complication of substance-induced condition: uncomplicated Qualified Code(s ): F10.230 - Alcohol dependence with withdrawal, uncomplicated (2) Marijuana dependence Status: Chronic (3) Nicotine dependence Status: Chronic Qualifiers: Nicotine product type: cigarettes Substance use status: uncomplicated Qualified Code(s): F17.210 - Nicotine dependence, cigarettes, uncomplicated (4) Substance induced mood disorder Status: Acute (5) Bipolar disorder Status: Chronic Comment: By history + self-report. Past history of hospitalizations. Non adherence to OPD care and medications. - Initial Treatment Plan Initial Treatment Plan: Psychoeducation provided. Detoxification in progress. Will order Seroquel 50mg qhs + Vistaril 50mg q4h. Benefits and side effects discussed. Verbal consent given.
[2018-09-07 11:04] LABS: ALBUMIN 3.3 g/dl (3.4-5.0); ALK PHOS 92 U/L (45-117); ANION GAP 10 MMOL/L (8-16); BILIRUBIN,TOTAL 0.3 mg/dL (0.2-1); BLOOD UREA NITROGEN 9 mg/dL (7-18); CALCIUM 8.3 mg/dL (8.5-10.1); CHLORIDE 105 mmol/L (98-107); CO2 26 mmol/L (21-32); CREATININE 0.7 mg/dL (0.55-1.3); GLUCOSE,RANDOM 83 mg/dL (74-106); POTASSIUM 4.2 mmol/L (3.5-5.1); SGOT/AST 18 U/L (15-37); SGPT/ALT 30 U/L (13-61); SODIUM 140 mmol/L (136-145); TOT PROT 6.4 g/dl (6.4-8.2)
--- NOTE | 2018-09-07 14:46 | PN ---
[facility] CIWA - CIWA Score Nausea/Vomitin-No Nausea/No Vomiting Muscle Tremors: None Anxiety: 5 Agitation: 5 Paroxysmal Sweats: No Perspiration Orientation: 0-Oriented Tacttile Disturbances: 0-None Auditory Disturbances: 0-None Visual Disturbances: 0-None Headache: 0-None Present CIWA-Ar Total Score: 10 S Progress Note (SOAP) Subjective: PATIENT ANXIOUS, IRRITABLE AND VERBALLY AGGRESSIVE TOWARDS STAFF. Objective: 09/07/18 14:44 Laboratory Tests 09/07/18 09/07/18 07:00 07:00 WBC 9.5 RBC 4.42 Hgb 13.2 Hct 37.5 D MCV 84.9 MCH 30.0 MCHC 35.3 RDW 13.9 Plt Count 251 D MPV 7.8 Sodium 140 Potassium 4.2 Chloride 105 Carbon Dioxide 26 Anion Gap 10 BUN 9 Creatinine 0.7 Creat Clearance w eGFR > 60 Random Glucose 83 Calcium 8.3 L Total Bilirubin 0.3 AST 18 ALT 30 Alkaline Phosphatase 92 Total Protein 6.4 Albumin 3.3 L Vital Signs Temperature 98.0 F 09/07/18 09:55 Pulse Rate 112 H 09/07/18 09:55 Respiratory Rate 18 09/07/18 09:55 Blood Pressure 138/90 09/07/18 09:55 O2 Sat by Pulse Oximetry (%) PE: ALERT AND ORIENTED X 3 AGITATED AND VERBALLY AGGRESSIVE TOWARDS STAFF EXT FULL ROM, AMB AD ASHWIN Assessment: 09/07/18 14:45 WITHDRAWAL SX Plan: CONTINUE DETOX PSYCH CONSULT ORDERED CONTINUE TO MONITOR
--- NOTE | 2018-09-07 14:51 | PN ---
S Progress Note Note: NOTIFIED BY RN THAT PATIENT REQUESTED TO LEAVE AND SIGN OUT AMA. PATIENT CONTINUES TO BE VERBALLY AGGRESSIVE WITH STAFF. REFUSED TO SPEAK TO PROVIDER. PATIENT SIGNED OUT AMA.
--- NOTE | 2018-09-07 14:52 | DS ---
[facility] Detox Discharge Summary Admission Date: 09/06/18 Discharge Date: 09/07/18 - History Present History: Alcohol Dependence - Physical Exam Results Vital Signs: Vital Signs Temperature 98.0 F 09/07/18 09:55 Pulse Rate 112 H 09/07/18 09:55 Respiratory Rate 18 09/07/18 09:55 Blood Pressure 138/90 09/07/18 09:55 O2 Sat by Pulse Oximetry (%) - Medication Discharge Medications: Ambulatory Orders NK [No Known Home Medication] 09/06/18 - Diagnosis (1) Alcohol dependence with withdrawal Current Visit: Yes Status: Acute Qualifiers: Complication of substance-induced condition: uncomplicated Qualified Code(s ): F10.230 - Alcohol dependence with withdrawal, uncomplicated - AMA Did Patient Leave Against Medical Advice: Yes
[2018-09-07] MEDS ORDERED: chlordiazePOXIDE HCL 25 MG CAPSULE PO SCH (23:00)
[2018-09-08] MEDS ORDERED: chlordiazePOXIDE 5 MG CAPSULE PO SCH (23:00)
[2018-09-09] MEDS ORDERED: chlordiazePOXIDE HCL 10 MG CAPSULE PO SCH (23:00)
== END 2018-09-07 13:20 | disposition left against medical advice (07) | DRG 770 ==
LOC: YASAS 15:02 → Y6N 19:41
PROC: HZ2ZZZZ Detoxification Services for Substance Abuse Treatment (ICD-10-PCS; principal; 2018-09-06)
DX: F10.230 Alcohol dependence with withdrawal, uncomplicated (principal); F12.20 Cannabis dependence, uncomplicated; F17.210 Nicotine dependence, cigarettes, uncomplicated; F31.9 Bipolar disorder, unspecified; F19.24 Other psychoactive substance dependence with psychoactive substance-induced mood disorder
CPT/HCPCS: 36415; 80053; 85027; 86593

== ENCOUNTER 2018-12-25 12:19 | Inpatient (IN) | payer OTHER ==
[2018-12-25 15:54] VITALS: BMI 28.8
--- NOTE | 2018-12-25 18:44 | HP ---
CIWA Score Nausea/Vomitin-No Nausea/No Vomiting Muscle Tremors: None Anxiety: 4-Mod. Anxious/Guarded Agitation: 4-Moderately Restless Paroxysmal Sweats: 2 Orientation: 0-Oriented Tacttile Disturbances: 0-None Auditory Disturbances: 0-None Visual Disturbances: 0-None Headache: 3-Moderate CIWA-Ar Total Score: 13 - Admission Criteria OASAS Guidelines: Admission for Medically Managed Detox: Requires at least one of the followin. CIWA greater than 12 2. Seizures within the past 24 hours 3. Delirium tremens within the past 24 hours 4. Hallucinations within the past 24 hours 5. Acute intervention needed for co occurring medical disorder 6. Acute intervention needed for co occurring psychiatric disorder 7. Severe withdrawal that cannot be handled at a lower level of care (continued vomiting, continued diarrhea, abnormal vital signs) requiring intravenous medication and/or fluids 8. Admission ROS [facility] Chief Complaint: ETOH/XANAX WITHDRAWAL SX Allergies/Adverse Reactions: Allergies Allergy/AdvReac Type Severity Reaction Status Date / Time No Known Allergies Allergy Verified 12/25/18 18:06 History of Present Illness: PATIENT IS KNOWN TO [facility] DUE TO MULTIPLE ADMISSIONS LAST ADMISSION 2017. PATIENT STATES HE STARTED DRINKING AND TAKING NON-PRESCRIBED XANAX 7 YEARS AGO. REPORTS DRINKING 1 LITRE OF VODKA AND TAKES 2MG OF XANAX BY MOUTH EVERY DAY. LAST DRINK THIS AFTERNOON. PATIENT DENIES HX OF SEIZURES. 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 ALSO SMOKES MARIJUANA RECREATIONALLY. PMH INCLUDES ANXIETY AND GERD. PATIENT DENIES H/O SI/HI AND SUICIDE ATTEMPTS. Exam Limitations: No Limitations - Ebola screening Have you traveled outside of the country in the last 21 days: No Have you had contact with anyone from an Ebola affected area: No Have you been sick,other than usual withdrawal symptoms: No Do you have a fever: No - Review of Systems Constitutional: Night Sweats, Unexplained wgt Loss EENT: reports: No Symptoms Reported Respiratory: reports: No Symptoms reported Cardiac: reports: No Symptoms Reported GI: reports: Nausea, Poor Appetite, Poor Fluid Intake, Abdominal cramping : reports: No Symptoms Reported Musculoskeletal: reports: Back Pain, Muscle Pain Integumentary: reports: No Symptoms Reported Neuro: reports: Headache Endocrine: reports: No Symptoms Reported Hematology: reports: No Symptoms Reported Psychiatric: reports: Orientated x3, Anxious Patient History - Patient Medical History Hx Anemia: No Hx Asthma: No Hx Chronic Obstructive Pulmonary Disease (COPD): No Hx Cancer: No Hx Cardiac Disorders: No Hx Congestive Heart Failure: No Hx Hypertension: Yes Hx Hypercholesterolemia: Yes (no meds ) Hx Pacemaker: No HX Cerebrovascular Accident: No Hx Seizures: No Hx Dementia: No Hx Diabetes: No Hx Gastrointestinal Disorders: No Hx Liver Disease: No Hx Genitourinary Disorders: No Hx Sexually Transmitted Disorders: No Hx Renal Disease (ESRD): No Hx Thyroid Disease: No Hx Human Immunodeficiency Virus (HIV): No ( last tested three weeks NEG reasults ) Hx Hepatitis C: No Hx Depression: No Hx Suicide Attempt: No Hx Bipolar Disorder: No Hx Schizophrenia: No Other Medical History: ANXIETY - Patient Surgical History Past Surgical History: No Hx Neurologic Surgery: No Hx Cataract Extraction: No Hx Cardiac Surgery: No Hx Lung Surgery: No Hx Breast Surgery: No Hx Breast Biopsy: No Hx Abdominal Surgery: No Hx Appendectomy: No Hx Cholecystectomy: No Hx Genitourinary Surgery: No Hx Orthopedic Surgery: No Anesthesia Reaction: No - PPD History Date: 07/21/18 Results: 0 mm PPD to be Administered?: No - Smoking Cessation Smoking history: Current every day smoker Have you smoked in the past 12 months: Yes Aproximately how many cigarettes per day: 30 Hx Chewing Tobacco Use: No Initiated information on smoking cessation: Yes 'Breaking Loose' booklet given: 12/25/18 - Substance & Tx. History Hx Alcohol Use: Yes Hx Substance Use: Yes Substance Use Type: Alcohol, Tranquilizers Hx Substance Use Treatment: Yes - Substances Abused Alcohol Route: Oral Frequency: Daily Amount used: 2 PINTS Age of first use: 20 Date of Last Use: 12/25/18 Alprazolam (Xanax) Route: Oral Frequency: Daily Amount used: 2 MG Age of first use: 16 Date of Last Use: 12/25/18 Family Disease History - Family Disease History Family Disease History: Other: Father (mental illness), Mother (mental illness) Admission Physical Exam BHS - Vital Signs Vital Signs: Vital Signs - 24 hr 12/25/18 15:53 Temperature 96.2 F L Pulse Rate 83 Respiratory 20 Rate Blood Pressure 122/63 - Physical General Appearance: Yes: Appropriately Dressed, Anxious HEENTM: Yes: EOMI, Hearing grossly Normal, Normocephalic, Normal Voice, ARNOLDO, Pharynx Normal Respiratory: Yes: Chest Non-Tender, Lungs Clear, Normal Breath Sounds, No Respiratory Distress, No Accessory Muscle Use Neck: Yes: No masses,lesions,Nodules, Supple, Trachea in good position Breast: Yes: Breast Exam Deferred Cardiology: Yes: Regular Rhythm, Regular Rate, S1, S2 Abdominal: Yes: Normal Bowel Sounds, Non Tender, Soft Genitourinary: Yes: Within Normal Limits Back: Yes: Muscle Spasm Musculoskeletal: Yes: full range of Motion, Gait Steady, Back pain, Muscle Pain Extremities: Yes: Normal Inspection, Normal Range of Motion, Non-Tender Neurological: Yes: supervisor cutting and boning II-XII NML intact, Fully Oriented, Alert, Motor Strength 5/5, Normal Response, Other (ANXIOUS) Integumentary: Yes: Normal Color, Dry, Warm Lymphatic: Yes: Within Normal Limits - Diagnostic (1) Sedative, hypnotic or anxiolytic abuse with intoxication, unspecified Current Visit: Yes Status: Acute (2) Alcohol dependence with withdrawal Current Visit: Yes Status: Acute Qualifiers: Complication of substance-induced condition: uncomplicated Qualified Code(s ): F10.230 - Alcohol dependence with withdrawal, uncomplicated (3) Anxious mood Current Visit: Yes Status: Acute (4) Marijuana dependence Current Visit: Yes Status: Chronic (5) Nicotine dependence Current Visit: Yes Status: Chronic Qualifiers: Nicotine product type: cigarettes Substance use status: uncomplicated Qualified Code(s): F17.210 - Nicotine dependence, cigarettes, uncomplicated Cleared for Admission [facility] - Detox or Rehab [facility] Level of Care: Medically Managed Detox Regimen/Protocol: Valium [facility] Breath Alcohol Content Breath Alcohol Content: 0 Urine Drug Screen - Results Drug Screen Negative: No Urine Drug Screen Results: THC-Marijuana, BZO-Benzodiazepines Inpatient Rehab Admission - Rehab Decision to Admit Inpatient rehab admission?: No
[2018-12-25] MEDS ORDERED: DICYCLOMINE HCL 10 MG CAPSULE PO PRN (18:49)
[2018-12-25] MEDS ORDERED: MENTHOL/PHENOL 1 EACH UD MM PRN (18:49)
[2018-12-25] MEDS ORDERED: BISMUTH SUBSALICYLATE 524 MG/30 ML UD PO PRN (18:49)
[2018-12-25] MEDS ORDERED: MELATONIN 5 MG TABLETS PO PRN (18:49)
[2018-12-25] MEDS ORDERED: hydrOXYzine PAMOATE 25 MG CAPSULE (FP) PO PRN (18:49)
[2018-12-25] MEDS ORDERED: IBUPROFEN 400 MG TABLET (FP) PO PRN (18:49)
[2018-12-25] MEDS ORDERED: MAG HYDROX/AL HYDROX/SIMETH 30 ML UNIT-DOSE CUP PO PRN (18:49)
[2018-12-25] MEDS ORDERED: ACETAMINOPHEN 325 MG TABLET (FP) PO PRN (18:49)
[2018-12-25] MEDS ORDERED: MAGNESIUM HYDROX 2400MG/30ML ORAL SUSPENSION 30 ML CUP PO PRN (18:49)
[2018-12-25] MEDS ORDERED: METHOCARBAMOL 500 MG TABLET PO PRN (18:49)
[2018-12-25] MEDS ORDERED: MAGNESIUM CITRATE 300 ML BOTTLE PO PRN (18:49)
[2018-12-25] MEDS: diazePAM 5 MG TABLET PO PRN (21:02)
[2018-12-25] MEDS: NICOTINE POLACRILEX 2 MG GUM BUC PRN (21:02)
[2018-12-25] MEDS: diazePAM 5 MG TABLET PO SCH ×2 (21:06→22:24)
[2018-12-25] MEDS ORDERED: THIAMINE HCL 100 MG TABLET (FP) PO SCH (22:00)
[2018-12-26] MEDS: diazePAM 5 MG TABLET PO SCH (05:32)
[2018-12-26 06:46] VITALS: BP 99/65; PULSE 69; TEMP 97.5
[2018-12-26] MEDS: NICOTINE POLACRILEX 2 MG GUM BUC PRN (08:26)
[2018-12-26] MEDS: diazePAM 5 MG TABLET PO PRN (08:37)
[2018-12-26] MEDS ORDERED: NICOTINE POLACRILEX 4 MG GUM BUC PRN (09:35)
[2018-12-26] MEDS ORDERED: NICOTINE 21 MG/24 HOURS TOPICAL PATCH TD SCH (10:00)
[2018-12-26] MEDS ORDERED: PRENATAL VITAMINS W/ FOLIC ACID TABLET (FP) PO SCH (10:00)
[2018-12-26] MEDS ORDERED: PANTOPRAZOLE 40 MG TABLET (FP) PO SCH (10:00)
--- NOTE | 2018-12-26 10:51 | PN ---
[facility] Progress Note Note: patient is disorganized, hypomanic, incoherent, lack of boundary, poor self control, evaluated by psychiatrist Dr. Bell treated with seroqual po meet with counselor, nurse, counselor tank house supervisor, and service writer [facility] psychiatric evaluation due to patient's current mental status too extreme for detox community at this time service writer providing information to ER Dr. Traylor at [phone] call ambulance at [phone] patient is been transferred to [facility] for psychiatric evaluation psychiatric cleared for detox or rehab admission may return to [facility]
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
[2018-12-26] MEDS ORDERED: QUEtiapine FUMARATE 25 MG TABLET (FP) PO SCH (11:30)
[2018-12-26 11:38] LABS: HEMATOCRIT 40.1 % (35.4-49); HEMOGLOBIN 13.9 GM/dL (11.7-16.9); MCH 30.1 pg (25.7-33.7); MCHC 34.7 g/dl (32.0-35.9); MEAN CELL VOLUME 86.7 fl (80-96); MEAN PLT VOLUME 7.9 fl (7.5-11.1); PLATELET COUNT 227 K/MM3 (134-434); RBC 4.62 M/mm3 (4.00-5.60); RDW 14.2 % (11.9-15.9); WHITE BLOOD COUNT 7.9 K/mm3 (4.0-10.0)
[2018-12-26 11:50] LABS: ALBUMIN 3.4 g/dl (3.4-5.0); ALK PHOS 72 U/L (45-117); ANION GAP 6 MMOL/L (8-16); BILIRUBIN,TOTAL 0.4 mg/dL (0.2-1); BLOOD UREA NITROGEN 11 mg/dL (7-18); CALCIUM 8.6 mg/dL (8.5-10.1); CHLORIDE 106 mmol/L (98-107); CO2 27 mmol/L (21-32); CREATININE 0.8 mg/dL (0.55-1.3); GLUCOSE,RANDOM 81 mg/dL (74-106); POTASSIUM 4.2 mmol/L (3.5-5.1); SGOT/AST 24 U/L (15-37); SGPT/ALT 30 U/L (13-61); SODIUM 140 mmol/L (136-145); TOT PROT 6.2 g/dl (6.4-8.2)
[2018-12-26] MEDS ORDERED: diazePAM 5 MG TABLET PO SCH (14:00)
[2018-12-26] MEDS ORDERED: CYCLOBENZAPRINE HCL 5 MG TABLET PO SCH (14:00)
--- NOTE | 2018-12-26 15:43 | PN ---
[facility] Progress Note Note: Psychiatry Attending's note : [employer] established contact with [facility] ED. Spoke to Ms Martel at [phone]. About this transfer. Documentation is faxed to [facility] ([phone]). Patient is confirmed in ED. Awaiting psychiatric evaluation.
[2018-12-27] MEDS ORDERED: diazePAM 5 MG TABLET PO ONE (06:00)
== END 2018-12-26 11:40 | DRG 775 ==
LOC: YASAS 12:19 → Y3N 18:57
PROVIDERS: ADMIT Surgery; ATTEND Surgery
PROC: HZ2ZZZZ Detoxification Services for Substance Abuse Treatment (ICD-10-PCS; principal; 2018-12-25)
DX: F10.230 Alcohol dependence with withdrawal, uncomplicated (principal); F13.230 Sedative, hypnotic or anxiolytic dependence with withdrawal, uncomplicated; F12.20 Cannabis dependence, uncomplicated; F17.210 Nicotine dependence, cigarettes, uncomplicated; F31.2 Bipolar disorder, current episode manic severe with psychotic features; F90.9 Attention-deficit hyperactivity disorder, unspecified type; F41.9 Anxiety disorder, unspecified; G47.00 Insomnia, unspecified; Z91.19 Patient's noncompliance with other medical treatment and regimen
CPT/HCPCS: 36415; 80053; 85027; 86593

== ENCOUNTER 2021-07-06 11:22 | Inpatient (IN) | payer OTHER ==
[2021-07-06 14:56] VITALS: BMI 23.5
[2021-07-06] MEDS ORDERED: ONDANSETRON *ODT* 4 MG TABLET SL PRN (15:11)
[2021-07-06] MEDS ORDERED: LORazepam 1 MG TABLET PO PRN (15:11)
[2021-07-06] MEDS ORDERED: METHOCARBAMOL 500 MG TABLET PO PRN (15:11)
[2021-07-06] MEDS ORDERED: ACETAMINOPHEN 325 MG TABLET (FP) PO PRN ×2 (15:11)
[2021-07-06] MEDS ORDERED: IBUPROFEN 400 MG TABLET (FP) PO PRN (15:11)
[2021-07-06] MEDS ORDERED: MAG HYDROX/AL HYDROX/SIMETH 30 ML UNIT-DOSE CUP PO PRN (15:11)
[2021-07-06] MEDS ORDERED: MAGNESIUM CITRATE 300 ML BOTTLE PO PRN (15:11)
[2021-07-06] MEDS ORDERED: BISMUTH SUBSALICYLATE 524 MG/30 ML PO PRN (15:11)
[2021-07-06] MEDS ORDERED: MAGNESIUM HYDROX 2400MG/30ML ORAL SUSPENSION 30 ML CUP PO PRN (15:11)
[2021-07-06] MEDS ORDERED: MENTHOL/PHENOL 1 EACH UD MM PRN (15:11)
[2021-07-06] MEDS ORDERED: NICOTINE 10 MG CARTRIDGE (INHALER) IH PRN (15:11)
[2021-07-06] MEDS ORDERED: cloNIDine HCL 0.1 MG TABLET PO PRN (15:11)
[2021-07-06] MEDS: hydrOXYzine PAMOATE 25 MG CAPSULE (FP) PO SCH ×2 (20:45→23:39)
[2021-07-06] MEDS: PRENATAL VITAMINS W/ FOLIC ACID TABLET (FP) PO SCH (20:45)
[2021-07-06] MEDS ORDERED: methaDONE HCL 10 MG TABLET (FOR DETOX USE ONLY) PO ONE (23:00)
[2021-07-06] MEDS: MELATONIN 5 MG TABLETS PO SCH (23:39)
[2021-07-06] MEDS: THIAMINE HCL 100 MG TABLET (FP) PO SCH (23:39)
[2021-07-06] MEDS: LORazepam 2 MG TABLET PO SCH (23:40)
[2021-07-07] MEDS: LORazepam 2 MG TABLET PO SCH ×2 (08:56→10:58)
[2021-07-07] MEDS: hydrOXYzine PAMOATE 25 MG CAPSULE (FP) PO SCH ×5 (08:59→23:06)
[2021-07-07] MEDS ORDERED: methaDONE HCL 10 MG TABLET (FOR DETOX USE ONLY) ONE (09:52)
[2021-07-07 10:37] LABS: HEMATOCRIT 42.6 % (35.4-49); HEMOGLOBIN 14.8 GM/dL (11.7-16.9); MCH 29.6 pg (25.7-33.7); MCHC 34.7 g/dl (32.0-35.9); MEAN CELL VOLUME 85.4 fl (80-96); MEAN PLT VOLUME 8.8 fl (7.5-11.1); PLATELET COUNT 273 10^3/uL (134-434); RBC 4.99 M/mm3 (4.00-5.60); RDW 14.1 % (11.9-15.9); WHITE BLOOD COUNT 7.5 K/mm3 (4.0-10.0)
[2021-07-07] MEDS: PRENATAL VITAMINS W/ FOLIC ACID TABLET (FP) PO SCH (10:56)
[2021-07-07 10:59] LABS: ALBUMIN 3.4 g/dl (3.4-5.0); CALCIUM 8.6 mg/dL (8.5-10.1)
[2021-07-07 11:00] LABS: BLOOD UREA NITROGEN 15.8 mg/dL (7-18)
[2021-07-07 11:03] LABS: CREATININE 0.8 mg/dL (0.55-1.3)
[2021-07-07 11:04] LABS: BILIRUBIN,TOTAL 0.5 mg/dL (0.2-1); TOT PROT 6.5 g/dl (6.4-8.2)
[2021-07-07] MEDS ORDERED: diazePAM 5 MG TABLET PO PRN (11:30)
[2021-07-07] MEDS ORDERED: methaDONE HCL 10 MG TABLET (FOR DETOX USE ONLY) PO ONE (11:45)
[2021-07-07] MEDS: diazePAM 5 MG TABLET PO SCH ×3 (12:35→23:08)
[2021-07-07] MEDS: NICOTINE POLACRILEX 4 MG GUM BUC PRN (18:32)
[2021-07-07] MEDS: THIAMINE HCL 100 MG TABLET (FP) PO SCH (23:06)
[2021-07-07] MEDS: MELATONIN 5 MG TABLETS PO SCH (23:06)
[2021-07-08] MEDS ORDERED: LORazepam 1 MG TABLET PO SCH (05:00)
[2021-07-08] MEDS: diazePAM 5 MG TABLET PO SCH ×2 (06:05→11:05)
[2021-07-08] MEDS: hydrOXYzine PAMOATE 25 MG CAPSULE (FP) PO SCH ×2 (06:06→11:05)
[2021-07-08 09:09] VITALS: TEMP 96.8
[2021-07-08] MEDS ORDERED: methaDONE HCL 10 MG TABLET (FOR DETOX USE ONLY) PO ONE (10:00)
[2021-07-08] MEDS: PRENATAL VITAMINS W/ FOLIC ACID TABLET (FP) PO SCH (11:05)
[2021-07-08] MEDS: NICOTINE POLACRILEX 4 MG GUM BUC PRN (12:20)
[2021-07-08 13:06] VITALS: BP 128/87; PULSE 98
[2021-07-09] MEDS ORDERED: LORazepam 0.5 MG TABLET PO PRN
[2021-07-09] MEDS ORDERED: LORazepam 0.5 MG TABLET PO SCH (05:00)
[2021-07-09] MEDS ORDERED: diazePAM 5 MG TABLET PO SCH (06:00)
[2021-07-09] MEDS ORDERED: methaDONE HCL 10 MG TABLET (FOR DETOX USE ONLY) PO ONE (10:00)
[2021-07-10] MEDS ORDERED: LORazepam 0.5 MG TABLET PO ONE (05:00)
[2021-07-10] MEDS ORDERED: diazePAM 5 MG TABLET PO SCH (06:00)
[2021-07-10] MEDS ORDERED: methaDONE HCL 10 MG TABLET (FOR DETOX USE ONLY) PO ONE (10:00)
[2021-07-11] MEDS ORDERED: diazePAM 5 MG TABLET PO ONE (06:00)
== END 2021-07-08 13:08 | disposition left against medical advice (07) | DRG 770 ==
LOC: YASAS 11:22 → Y3N 16:42
PROVIDERS: ADMIT Allergy & Immunology; ATTEND Allergy & Immunology
PROC: HZ2ZZZZ Detoxification Services for Substance Abuse Treatment (ICD-10-PCS; principal; 2021-07-06)
DX: F11.23 Opioid dependence with withdrawal (principal); F10.230 Alcohol dependence with withdrawal, uncomplicated; F10.220 Alcohol dependence with intoxication, uncomplicated; F14.20 Cocaine dependence, uncomplicated; F12.20 Cannabis dependence, uncomplicated; F17.210 Nicotine dependence, cigarettes, uncomplicated; K21.9 Gastro-esophageal reflux disease without esophagitis; Z91.14 Patient's other noncompliance with medication regimen; Z59.0 Homelessness
CPT/HCPCS: 36415; 80053; 85027; 86780; C9803; U0003; U0005

== ENCOUNTER 2021-09-11 12:55 | Inpatient (IN) | payer OTHER ==
[2021-09-11 18:16] VITALS: BMI 26.6
[2021-09-11] MEDS ORDERED: MAG HYDROX/AL HYDROX/SIMETH 30 ML UNIT-DOSE CUP PO PRN (19:05)
[2021-09-11] MEDS ORDERED: MENTHOL/PHENOL 1 EACH UD MM PRN (19:05)
[2021-09-11] MEDS ORDERED: IBUPROFEN 400 MG TABLET (FP) PO PRN (19:05)
[2021-09-11] MEDS ORDERED: NICOTINE 10 MG CARTRIDGE (INHALER) IH PRN (19:05)
[2021-09-11] MEDS ORDERED: ONDANSETRON *ODT* 4 MG TABLET SL PRN (19:05)
[2021-09-11] MEDS ORDERED: BISMUTH SUBSALICYLATE 524 MG/30 ML PO PRN (19:05)
[2021-09-11] MEDS ORDERED: MAGNESIUM CITRATE 300 ML BOTTLE PO PRN (19:05)
[2021-09-11] MEDS ORDERED: MAGNESIUM HYDROX 2400MG/30ML ORAL SUSPENSION 30 ML CUP PO PRN (19:05)
[2021-09-11] MEDS ORDERED: ACETAMINOPHEN 325 MG TABLET (FP) PO PRN ×2 (19:05)
[2021-09-11] MEDS ORDERED: MELATONIN 5 MG TABLETS PO PRN (19:05)
[2021-09-11] MEDS: hydrOXYzine PAMOATE 25 MG CAPSULE (FP) PO PRN (20:12)
[2021-09-11] MEDS: guaiFENesin 200 MG/10 ML 10 ML UNIT-DOSE CUPS PO SCH (20:12)
[2021-09-11] MEDS: THIAMINE HCL 100 MG TABLET (FP) PO SCH (21:57)
[2021-09-12] MEDS: guaiFENesin 200 MG/10 ML 10 ML UNIT-DOSE CUPS PO SCH ×2 (07:12→07:13)
[2021-09-12] MEDS: PRENATAL VITAMINS W/ FOLIC ACID TABLET (FP) PO SCH (10:42)
[2021-09-12] MEDS: hydrOXYzine PAMOATE 25 MG CAPSULE (FP) PO PRN (10:42)
[2021-09-12] MEDS: METHOCARBAMOL 500 MG TABLET PO PRN (10:42)
[2021-09-12] MEDS: NICOTINE POLACRILEX 4 MG GUM BUC PRN ×2 (10:42→15:55)
[2021-09-12] MEDS ORDERED: guaiFENesin 200 MG/10 ML 10 ML UNIT-DOSE CUPS PO PRN (11:21)
[2021-09-12] MEDS ORDERED: diazePAM 5 MG TABLET PO PRN (14:43)
[2021-09-12] MEDS ORDERED: cloNIDine HCL 0.1 MG TABLET PO PRN (14:43)
[2021-09-12] MEDS ORDERED: methaDONE HCL 10 MG TABLET (FOR DETOX USE ONLY) PO ONE (15:00)
[2021-09-12] MEDS: diazePAM 5 MG TABLET PO ONE (17:18)
[2021-09-12] MEDS: diazePAM 5 MG TABLET PO SCH ×2 (18:04→23:16)
[2021-09-12] MEDS: THIAMINE HCL 100 MG TABLET (FP) PO SCH (23:16)
[2021-09-13] MEDS: diazePAM 5 MG TABLET PO SCH ×3 (05:40→22:16)
[2021-09-13] MEDS: NICOTINE POLACRILEX 4 MG GUM BUC PRN ×6 (05:42→20:32)
[2021-09-13] MEDS ORDERED: methaDONE HCL 10 MG TABLET (FOR DETOX USE ONLY) ONE (09:24)
[2021-09-13] MEDS: PRENATAL VITAMINS W/ FOLIC ACID TABLET (FP) PO SCH (11:17)
[2021-09-13 13:02] LABS: HEMATOCRIT 42.8 % (35.4-49); HEMOGLOBIN 14.4 GM/dL (11.7-16.9); MCH 28.9 pg (25.7-33.7); MCHC 33.7 g/dl (32.0-35.9); MEAN CELL VOLUME 85.8 fl (80-96); MEAN PLT VOLUME 7.9 fl (7.5-11.1); PLATELET COUNT 251 10^3/uL (134-434); RBC 4.99 M/mm3 (4.00-5.60); RDW 13.9 % (11.9-15.9); WHITE BLOOD COUNT 7.9 K/mm3 (4.0-10.0)
[2021-09-13 13:15] LABS: ALBUMIN 3.4 g/dl (3.4-5.0); BLOOD UREA NITROGEN 14.7 mg/dL (7-18); CALCIUM 8.7 mg/dL (8.5-10.1)
[2021-09-13 13:18] LABS: CREATININE 0.8 mg/dL (0.55-1.3)
[2021-09-13 13:20] LABS: BILIRUBIN,TOTAL 0.2 mg/dL (0.2-1)
[2021-09-13 13:21] LABS: TOT PROT 6.5 g/dl (6.4-8.2)
[2021-09-13] MEDS: hydrOXYzine PAMOATE 25 MG CAPSULE (FP) PO PRN (18:18)
[2021-09-13] MEDS: METHOCARBAMOL 500 MG TABLET PO PRN (22:16)
[2021-09-13] MEDS: THIAMINE HCL 100 MG TABLET (FP) PO SCH (22:16)
[2021-09-14] MEDS: diazePAM 5 MG TABLET PO SCH ×2 (06:37→17:47)
[2021-09-14] MEDS ORDERED: methaDONE HCL 10 MG TABLET (FOR DETOX USE ONLY) PO ONE (10:00)
[2021-09-14] MEDS: PRENATAL VITAMINS W/ FOLIC ACID TABLET (FP) PO SCH (10:22)
[2021-09-14] MEDS: NICOTINE POLACRILEX 4 MG GUM BUC PRN ×3 (10:24→19:21)
[2021-09-14] MEDS: THIAMINE HCL 100 MG TABLET (FP) PO SCH (23:00)
[2021-09-15 06:09] VITALS: TEMP 97.7
[2021-09-15] MEDS: diazePAM 5 MG TABLET PO ONE (06:31)
[2021-09-15] MEDS: NICOTINE POLACRILEX 4 MG GUM BUC PRN ×2 (06:32→09:41)
[2021-09-15 09:23] VITALS: BP 131/73; PULSE 84
== END 2021-09-15 11:28 | disposition home or self-care (01) | DRG 773 ==
LOC: YASAS 12:55 → Y3N 18:19 → UNDOADMIN 18:19 → Y3N 09-14 16:23
PROVIDERS: ADMIT Allergy & Immunology; ATTEND Allergy & Immunology
PROC: HZ2ZZZZ Detoxification Services for Substance Abuse Treatment (ICD-10-PCS; principal; 2021-09-11)
DX: F11.23 Opioid dependence with withdrawal (principal); F10.230 Alcohol dependence with withdrawal, uncomplicated; F14.20 Cocaine dependence, uncomplicated; F17.210 Nicotine dependence, cigarettes, uncomplicated; F31.9 Bipolar disorder, unspecified; K21.9 Gastro-esophageal reflux disease without esophagitis; R60.0 Localized edema; R05.9 Cough, unspecified; Z59.00 Homelessness unspecified
CPT/HCPCS: 36415; 80053; 82962; 83036; 85027; 86780; C9803; J0735; U0003; U0005

== ENCOUNTER 2022-12-24 13:53 | Inpatient (IN) | payer OTHER ==
[2022-12-24 15:49] VITALS: BMI 24.5
[2022-12-24] MEDS ORDERED: METHOCARBAMOL 500 MG TABLET PO PRN (16:36)
[2022-12-24] MEDS ORDERED: NICOTINE POLACRILEX 2 MG GUM BUC PRN (16:36)
[2022-12-24] MEDS ORDERED: ONDANSETRON *ODT* 4 MG TABLET SL PRN (16:36)
[2022-12-24] MEDS ORDERED: guaiFENesin 600 MG TABLET.ER (FP) PO PRN (16:36)
[2022-12-24] MEDS ORDERED: MAG HYDROX/AL HYDROX/SIMETH 30 ML UNIT-DOSE CUP PO PRN (16:36)
[2022-12-24] MEDS ORDERED: IBUPROFEN 400 MG TABLET (FP) PO PRN (16:36)
[2022-12-24] MEDS ORDERED: NALOXONE HCL 0.4 MG/ML VIAL IM PRN (16:36)
[2022-12-24] MEDS ORDERED: DICYCLOMINE HCL 10 MG CAPSULE PO PRN (16:36)
[2022-12-24] MEDS ORDERED: IBUPROFEN 600 MG TABLET (FP) PO PRN (16:36)
[2022-12-24] MEDS ORDERED: NALOXONE HCL (KLOXXADO) 8 MG SPRAY NS PRN (16:36)
[2022-12-24] MEDS ORDERED: hydrOXYzine PAMOATE 25 MG CAPSULE (FP) PO PRN (16:36)
[2022-12-24] MEDS ORDERED: ACETAMINOPHEN 325 MG TABLET (FP) PO PRN (16:36)
[2022-12-24] MEDS ORDERED: BENZOCAINE/MENTHOL (CHLORASEPTIC ) LOZENGE MM PRN (16:36)
[2022-12-24] MEDS ORDERED: BISMUTH SUBSALICYLATE 524 MG/30 ML PO PRN (16:36)
[2022-12-24] MEDS ORDERED: POLYETHYLENE GLYCOL (HEALTHYLAX) 3350 17 GM PACKET PO PRN (16:36)
[2022-12-24] MEDS ORDERED: BENZONATATE 200 MG CAPSULE PO PRN (16:36)
[2022-12-24] MEDS ORDERED: LOPERAMIDE HCL 2 MG CAPSULE PO PRN (16:36)
[2022-12-24] MEDS ORDERED: MAGNESIUM HYDROX 2400MG/30ML ORAL SUSPENSION 30 ML CUP PO PRN (16:36)
[2022-12-24] MEDS ORDERED: THIAMINE HCL 100 MG TABLET (FP) PO SCH (22:00)
[2022-12-24] MEDS ORDERED: MELATONIN 5 MG TABLETS PO SCH (22:00)
[2022-12-25 06:24] VITALS: RESP 18
[2022-12-25] MEDS ORDERED: NICOTINE 21 MG/24 HOURS TOPICAL PATCH TD SCH (10:00)
[2022-12-25] MEDS ORDERED: PRENATAL VITAMINS W/ FOLIC ACID TABLET (FP) PO SCH (10:00)
[2022-12-25 10:58] LABS: HEMOGLOBIN 13.4 GM/dL (11.7-16.9); MCH 27.4 pg (25.7-33.7); MCHC 34.3 g/dl (32.0-35.9); MEAN CELL VOLUME 79.8 fl (80-96); MEAN PLT VOLUME 6.8 fl (7.5-11.1); PLATELET COUNT 421 10^3/uL (134-434); RBC 4.88 M/mm3 (4.00-5.60); RDW 14.9 % (11.9-15.9)
[2022-12-25 11:14] LABS: BLOOD UREA NITROGEN 11.2 mg/dL (7-18); CALCIUM 9.1 mg/dL (8.5-10.1)
[2022-12-25 11:15] LABS: ALBUMIN 2.9 g/dl (3.4-5.0); CREATININE 0.7 mg/dL (0.55-1.3)
[2022-12-25 11:17] LABS: BILIRUBIN,TOTAL 0.4 mg/dL (0.2-1); TOT PROT 6.7 g/dl (6.4-8.2)
[2022-12-25 13:19] VITALS: BP 139/76; PULSE 89; TEMP 98.7
== END 2022-12-25 14:32 | disposition home or self-care (01) | DRG 773 ==
LOC: YASAS 13:53 → Y6N 16:35
PROVIDERS: ADMIT Allergy & Immunology; ATTEND Surgery
PROC: HZ2ZZZZ Detoxification Services for Substance Abuse Treatment (ICD-10-PCS; principal; 2022-12-24)
DX: F11.23 Opioid dependence with withdrawal (principal); F10.230 Alcohol dependence with withdrawal, uncomplicated; F14.20 Cocaine dependence, uncomplicated; F12.20 Cannabis dependence, uncomplicated; F17.210 Nicotine dependence, cigarettes, uncomplicated; F31.2 Bipolar disorder, current episode manic severe with psychotic features; F19.24 Other psychoactive substance dependence with psychoactive substance-induced mood disorder; R40.0 Somnolence; Z59.00 Homelessness unspecified
CPT/HCPCS: 36415; 80053; 85027; 86780; 87811; C9803-CS; U0003; U0005

== ENCOUNTER 2023-10-04 16:33 | Inpatient (IN) | payer OTHER ==
[2023-10-04 19:44] VITALS: BMI 25.8
[2023-10-04] MEDS ORDERED: MAGNESIUM HYDROX 2400MG/30ML ORAL SUSPENSION 30 ML CUP PO PRN (21:17)
[2023-10-04] MEDS ORDERED: LOPERAMIDE HCL 2 MG CAPSULE PO PRN (21:17)
[2023-10-04] MEDS ORDERED: BISMUTH SUBSALICYLATE 524 MG/30 ML PO PRN (21:17)
[2023-10-04] MEDS ORDERED: DICYCLOMINE HCL 10 MG CAPSULE PO PRN (21:17)
[2023-10-04] MEDS ORDERED: BENZOCAINE/MENTHOL (CHLORASEPTIC ) LOZENGE MM PRN (21:17)
[2023-10-04] MEDS ORDERED: P-EPHED 60MG/TRIPROLIDI 2.5MG TABLET PO PRN (21:17)
[2023-10-04] MEDS ORDERED: IBUPROFEN 400 MG TABLET (FP) PO PRN (21:17)
[2023-10-04] MEDS ORDERED: IBUPROFEN 600 MG TABLET (FP) PO PRN (21:17)
[2023-10-04] MEDS ORDERED: POLYETHYLENE GLYCOL (HEALTHYLAX) 3350 17 GM PACKET PO PRN (21:17)
[2023-10-04] MEDS ORDERED: METHOCARBAMOL 500 MG TABLET PO PRN (21:17)
[2023-10-04] MEDS ORDERED: MAG HYDROX/AL HYDROX/SIMETH 30 ML UNIT-DOSE CUP PO PRN (21:17)
[2023-10-04] MEDS ORDERED: ACETAMINOPHEN 325 MG TABLET (FP) PO PRN (21:17)
[2023-10-04] MEDS ORDERED: guaiFENesin 600 MG TABLET.ER (FP) PO PRN (21:17)
[2023-10-04] MEDS ORDERED: ONDANSETRON *ODT* 4 MG TABLET SL PRN (21:17)
[2023-10-04] MEDS ORDERED: BENZONATATE 200 MG CAPSULE PO PRN (21:17)
[2023-10-04] MEDS ORDERED: NALOXONE HCL (KLOXXADO) 8 MG SPRAY NS PRN (21:17)
[2023-10-04] MEDS ORDERED: NALOXONE HCL 0.4 MG/ML VIAL IM PRN (21:17)
[2023-10-04] MEDS ORDERED: MELATONIN 5 MG TABLETS PO SCH (22:00)
[2023-10-04] MEDS ORDERED: THIAMINE HCL 100 MG TABLET (FP) PO SCH (22:00)
[2023-10-04] MEDS: hydrOXYzine PAMOATE 25 MG CAPSULE (FP) PO PRN (22:25)
[2023-10-04] MEDS: NICOTINE POLACRILEX 2 MG GUM BUC PRN (22:26)
[2023-10-05] MEDS: NICOTINE POLACRILEX 2 MG GUM BUC PRN ×3 (03:42→16:52)
[2023-10-05 09:07] VITALS: RESP 18
[2023-10-05] MEDS ORDERED: PRENATAL VITAMINS W/ FOLIC ACID TABLET (FP) PO SCH (10:00)
[2023-10-05] MEDS ORDERED: diazePAM 5 MG TABLET PO PRN (10:25)
[2023-10-05] MEDS: diazePAM 5 MG TABLET PO SCH ×2 (10:37→16:51)
[2023-10-05 11:08] LABS: HEMOGLOBIN 12.7 GM/dL (11.7-16.9); MCH 28.3 pg (25.7-33.7); MCHC 33.3 g/dl (32.0-35.9); MEAN CELL VOLUME 84.8 fl (80-96); MEAN PLT VOLUME 7.1 fl (7.5-11.1); PLATELET COUNT 357 10^3/uL (134-434); RBC 4.48 M/mm3 (4.00-5.60); RDW 14.3 % (11.9-15.9); WHITE BLOOD COUNT 9.8 K/mm3 (4.0-10.0)
[2023-10-05 12:24] LABS: CHLORIDE 109 mmol/L (98-107); SODIUM 138 mmol/L (136-145)
[2023-10-05 12:29] LABS: ALBUMIN 3.3 g/dl (3.4-5.0); ANION GAP 3 mmol/L (4-13); BLOOD UREA NITROGEN 14.2 mg/dL (7-18); CO2 26 mmol/L (21-32); GLUCOSE,RANDOM 94 mg/dL (74-106)
[2023-10-05 12:32] LABS: CREATININE 0.6 mg/dL (0.55-1.3); SGOT/AST 16 U/L (15-37); SGPT/ALT 30 U/L (13-61)
[2023-10-05 12:33] LABS: BILIRUBIN,TOTAL 0.2 mg/dL (0.2-1); TOT PROT 6.4 g/dl (6.4-8.2)
[2023-10-05 12:36] LABS: ALK PHOS 81 U/L (45-117)
[2023-10-05] MEDS ORDERED: methaDONE HCL 10 MG TABLET PO SCH (13:00)
[2023-10-05] MEDS ORDERED: NICOTINE POLACRILEX 4 MG GUM BUC PRN (18:02)
[2023-10-05 20:20] VITALS: BP 148/85; PULSE 77; TEMP 98
[2023-10-05] MEDS: hydrOXYzine PAMOATE 25 MG CAPSULE (FP) PO PRN (20:33)
[2023-10-05] MEDS ORDERED: QUEtiapine FUMARATE 100 MG TABLET (FP) PO SCH (22:00)
[2023-10-05] MEDS ORDERED: GABAPENTIN 100 MG CAPSULE PO SCH (22:00)
[2023-10-06] MEDS ORDERED: NICOTINE 21 MG/24 HOURS TOPICAL PATCH TD SCH (10:00)
[2023-10-06] MEDS ORDERED: QUEtiapine FUMARATE 50 MG TABLET PO SCH (10:00)
[2023-10-07] MEDS ORDERED: diazePAM 5 MG TABLET PO SCH (06:00)
[2023-10-08] MEDS ORDERED: diazePAM 5 MG TABLET PO SCH (06:00)
[2023-10-09] MEDS ORDERED: diazePAM 5 MG TABLET PO ONE (06:00)
== END 2023-10-05 21:33 | disposition short-term general hospital (02) | DRG 773 ==
LOC: YASAS 16:33 → Y3N 21:24
PROVIDERS: ADMIT Allergy & Immunology; ATTEND Surgery
PROC: HZ2ZZZZ Detoxification Services for Substance Abuse Treatment (ICD-10-PCS; principal; 2023-10-04)
DX: F11.23 Opioid dependence with withdrawal (principal); F10.230 Alcohol dependence with withdrawal, uncomplicated; F12.20 Cannabis dependence, uncomplicated; F17.210 Nicotine dependence, cigarettes, uncomplicated; F31.9 Bipolar disorder, unspecified; F19.24 Other psychoactive substance dependence with psychoactive substance-induced mood disorder; R45.851 Suicidal ideations
CPT/HCPCS: 36415; 80053; 80307; 85027; 86780; 87635; 93005; 93010